=== PATIENT | male | born 1975 | race Caucasian/White ===

== ENCOUNTER 2016-11-26 10:06 | Inpatient (IN) | payer OTHER ==
[2016-11-26] MEDS ORDERED: DIPHTH/TETANUS/ACEL PERTUSSIS (BOOSTER) 0.5 ML VIAL/PFS IM ONE ×2 (10:10→11:18)
[2016-11-26] MEDS ORDERED: ceFAZolin 2 GM PREMIX 50 ML ONE (10:10)
[2016-11-26] MEDS ORDERED: ONDANSETRON HCL 4 MG/2 ML VIAL ONE (10:16)
[2016-11-26 10:19] VITALS: O2SAT 99
[2016-11-26 10:22] LABS: MEAN CORPUSCULAR HGB CONC 36.1 % (32.0-36.0)
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
[2016-11-26 10:32] LABS: AUTOMATED NEUTROPHIL # 4.8 TH/MM3 (1.8-7.7); BASOPHIL % 0.5 % (0.0-2.0); EOSINOPHIL # 0.1 TH/MM3 (0-0.4); EOSINOPHIL % 1.1 % (0.0-4.0); HEMATOCRIT 43.1 % (39.0-51.0); I-STAT POTASSIUM 3.6 MMOL/L (3.5-4.9); LYMPH % 34.2 % (9.0-44.0); LYMPHOCYTE # 2.9 TH/MM3 (1.0-4.8); MEAN CELL VOLUME 86.3 FL (80.0-100.0); MEAN CORPUSCULAR HEMOGLOBIN 31.2 PG (27.0-34.0); NEUT % 57.2 % (16.0-70.0); PLATELET COUNT 177 TH/MM3 (150-450); RED CELL DISTRIBUTION WIDTH 13.9 % (11.6-17.2); WHITE BLOOD COUNT 8.3 TH/MM3 (4.0-11.0)
[2016-11-26] MEDS ORDERED: IOHEXOL 350 MG/ML 10 ML VIAL (for RAD DIAG) IV ONE (10:32)
[2016-11-26] MEDS: LACTATED RINGER'S 1000 ML INJ 1,000 ML IV SCH ×2 (10:37→20:37)
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
[2016-11-26 10:40] LABS: HEMO FLAGS AUTO DIFF
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
[2016-11-26 10:43] LABS: APTT (PATIENT) 25.7 SEC (24.3-30.1); INTERNATIONAL NORMALIZED RATIO 1.1 RATIO; PROTHROMBIN TIME - PATIENT 12.1 SEC (9.8-11.6)
[2016-11-26] MEDS ORDERED: HYDROmorphone HCL PF 1 MG/ML VIAL IVP PRN (10:45)
[2016-11-26] MEDS ORDERED: CHLORHEXIDINE GLUCONATE 2 % 1 PACK (2 CLOTHS) TOP PRN (10:45)
[2016-11-26] MEDS ORDERED: ONDANSETRON HCL 4 MG/2 ML VIAL IV PRN (10:45)
[2016-11-26] MEDS ORDERED: MISCELLANEOUS NURSING INFORMATION XX SCH (10:45)
[2016-11-26] MEDS ORDERED: SODIUM CHLORIDE 0.9% FLUSH 10 ML FLUSH IV FLUSH PRN (10:45)
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
[2016-11-26 10:55] VITALS: BP 172/90; PULSE 80; RESP 16; O2SAT 98
[2016-11-26 10:56] VITALS: BP 168/105; PULSE 81; RESP 18; O2SAT 100
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
[2016-11-26] MEDS ORDERED: ceFAZolin 2 GM PREMIX 50 ML IV STA (11:18)
[2016-11-26 11:22] LABS: PLATELET ESTIMATE SMEAR NORMAL (NORMAL); PLATELET MORPHOLOGY NORMAL (NORMAL); SCAN/DIFF AUTO DIFF CONFIRMED
[2016-11-26] MEDS ORDERED: PROPOFOL 200 MG/20 ML AMP IV ONE (12:00)
[2016-11-26] MEDS ORDERED: ONDANSETRON HCL 4 MG/2 ML VIAL IV PUSH ONE (12:00)
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
[2016-11-26] MEDS ORDERED: BACITRACIN TOP OINT 15 GM TUBE ONE (13:20)
[2016-11-26] MEDS ORDERED: SILVER NITR/POTASSIUM NITRATE APPLICATORS ONE (13:21)
[2016-11-26] MEDS ORDERED: METOCLOPRAMIDE HCL 10 MG/2 ML VIAL ONE (13:28)
[2016-11-26] MEDS ORDERED: FAMOTIDINE 20 MG/2 ML VIAL ONE (13:28)
[2016-11-26] MEDS ORDERED: DEXAMETHASONE SOD PHOS 4 MG/ML VIAL ONE (13:28)
[2016-11-26] MEDS ORDERED: MIDAZOLAM HCL 2 MG/2 ML VIAL ONE (13:28)
[2016-11-26] MEDS ORDERED: BUPIVACAINE/EPINEPHRINE 0.25% PF 30 ML VIAL ONE (13:31)
[2016-11-26] MEDS ORDERED: ceFAZolin INJ 1,000 MG VIAL IV ONE (14:14)
[2016-11-26] MEDS ORDERED: fentaNYL CITRATE 250 MCG/5 ML AMP ONE (15:07)
--- NOTE | 2016-11-26 15:12 | HHI.PR ---
Immediate Post Op Note Procedure Date: Nov 26, 2016 Pre Op Diagnosis: (1) Laceration of scalp with complication Post Op Diagnosis: (1) Laceration of scalp with complication Surgeon: Zoe Guerrero Field Placement Director(s): None Procedure: Excisional debridement and repair of 13 cm scalp laceration. Estimated blood loss: 25 ml Anesthesia: General Drains: None Tourniquet time (min at mmHg) NA Patient to: PACU Patient Condition: Good Date/Time of Procedure: SEE SURGICAL CARE RECORD Zoe Guerrero MD Nov 26, 2016 15:11
[2016-11-26] MEDS ORDERED: DO NOT ADM ANY ANTICOAGULANT DRUGS PRN ×2 (15:15→16:00)
[2016-11-26] MEDS ORDERED: SODIUM CHLORIDE 0.9% FLUSH 5 ML FLUSH IVF PRN (15:15)
[2016-11-26 16:00] VITALS: BP 140/78; PULSE 81; RESP 18; TEMP 97.4; O2SAT 96
[2016-11-26] MEDS: DEXT 5%-NACL 0.45% 1000 ML INJ 1,000 ML IV SCH (16:40)
[2016-11-26 17:44] VITALS: O2SAT 98
[2016-11-26 20:00] VITALS: BP 144/64; PULSE 75; RESP 16; TEMP 98.1; O2SAT 95
[2016-11-26] MEDS: SODIUM CHLORIDE 0.9% FLUSH 5 ML FLUSH IVF SCH (21:00)
[2016-11-27] MEDS: DEXT 5%-NACL 0.45% 1000 ML INJ 1,000 ML IV SCH ×2 (02:22→11:45)
[2016-11-27] MEDS ORDERED: CHLORHEXIDINE GLUCONATE 2 % 1 PACK (2 CLOTHS) TOP SCH (04:00)
[2016-11-27] MEDS: LACTATED RINGER'S 1000 ML INJ 1,000 ML IV SCH (06:37)
[2016-11-27 08:00] VITALS: BP 129/68; PULSE 72; RESP 16; TEMP 97.6; O2SAT 98
[2016-11-27] MEDS: SODIUM CHLORIDE 0.9% FLUSH 5 ML FLUSH IVF SCH ×2 (08:09→20:29)
[2016-11-27 12:00] VITALS: BP 136/65; PULSE 83; RESP 18; TEMP 97.8; O2SAT 100
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
[2016-11-27 16:00] VITALS: BP 135/66; PULSE 95; RESP 20; TEMP 99; O2SAT 99
[2016-11-27] MEDS ORDERED: oxyCODONE/ACETAMINOPHEN 5 MG/325 MG TAB PO PRN (16:15)
[2016-11-27] MEDS: oxyCODONE/ACETAMINOPHEN 5 MG/325 MG TAB PO PRN ×2 (16:37→23:57)
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
[2016-11-27 20:00] VITALS: BP 131/69; PULSE 70; RESP 21; TEMP 97.4; O2SAT 99
[2016-11-27] MEDS: DOCUSATE SODIUM 100 MG CAP PO SCH (20:28)
--- NOTE | 2016-11-27 20:53 | RADRPT ---
EXAM DATE/TIME: 11/27/2016 18:27 [facility] COMPARISON: No previous studies available for comparison. INDICATIONS : Neck pain/head trauma. MEDICAL HISTORY : None. SURGICAL HISTORY : Orthopaedic. ENCOUNTER: Initial ACUITY: 1 day PAIN SCORE: 4/10 LOCATION: Paraspinal TECHNIQUE: Multiplanar, multisequence MRI examination of the cervical spine was performed. FINDINGS: VERTEBRAE: Normal vertebral body height. Homogeneous marrow signal. ALIGNMENT: No evidence of subluxation. CORD: Normal configuration and signal. POST FOSSA: The cerebellar tonsils are normal in position. C2-C3: The thecal sac has a normal configuration. There is no evidence of disc herniation or spinal canal s tenosis. The neural foramina are patent bilaterally. C3-C4: The thecal sac has a normal configuration. There is no evidence of disc herniation or spinal canal s tenosis. The neural foramina are patent bilaterally. C4-C5: The thecal sac has a normal configuration. There is no evidence of disc herniation or spinal canal s tenosis. The neural foramina are patent bilaterally. C5-C6: The thecal sac has a normal configuration. There is no evidence of disc herniation or spinal canal s tenosis. The neural foramina are patent bilaterally. C6-C7: The thecal sac has a normal configuration. There is no evidence of disc herniation or spinal canal s tenosis. The neural foramina are patent bilaterally. C7-T1: The thecal sac has a normal configuration. There is no evidence of disc herniation or spinal canal s tenosis. The neural foramina are patent bilaterally. CONCLUSION: Normal examination. Ghassan Lawrence MD on November 27, 2016 at 20:50 Board Certified Radiologist. This report was verified electronically.
[2016-11-27] MEDS ORDERED: MAGNESIUM HYDROXIDE SUSP 30 ML CUP PO SCH (21:00)
[2016-11-28] VITALS: BP 135/74; PULSE 85; RESP 20; TEMP 99.1; O2SAT 97
[2016-11-28] MEDS: oxyCODONE/ACETAMINOPHEN 5 MG/325 MG TAB PO PRN (07:56)
[2016-11-28] MEDS: DOCUSATE SODIUM 100 MG CAP PO SCH (07:56)
[2016-11-28] MEDS: SODIUM CHLORIDE 0.9% FLUSH 5 ML FLUSH IVF SCH (07:57)
[2016-11-28 08:00] VITALS: BP 132/73; PULSE 82; RESP 18; TEMP 98.7; O2SAT 98
[2016-11-28] MEDS ORDERED: DOCU1CAP39 PO (08:00)
[2016-11-28] MEDS ORDERED: MILKSUS PO (08:00)
[2016-11-28 12:00] VITALS: BP 147/70; PULSE 72; RESP 16; TEMP 96.4; O2SAT 100
[2016-11-28 16:00] VITALS: BP 129/74; PULSE 78; RESP 18; TEMP 97.2; O2SAT 100
[2016-11-28] MEDS ORDERED: OXYC1TAB63 PO (16:33)
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
[2016-12-09] MEDS ORDERED: BACT800T5 PO (10:24)
== END 2016-11-28 19:35 | disposition home or self-care (01) | DRG 572 ==
LOC: NEPI 10:06 → EDBD 11:01 → NEDA 11:01 → N07A 16:14
PROVIDERS: ADMIT Surgery Trauma Surgery; ATTEND Surgery Trauma Surgery
PROC: 0JQ00ZZ Repair Scalp Subcutaneous Tissue and Fascia, Open Approach (ICD-10-PCS; 2016-11-26)
PROC: 0JB00ZZ Excision of Scalp Subcutaneous Tissue and Fascia, Open Approach (ICD-10-PCS; principal; 2016-11-26 13:45)
DX: S01.01XA Laceration without foreign body of scalp, initial encounter (principal); M10.9 Gout, unspecified; V48.0XXA Car driver injured in noncollision transport accident in nontraffic accident, initial encounter; Y92.410 Unspecified street and highway as the place of occurrence of the external cause; Z87.891 Personal history of nicotine dependence
CPT/HCPCS: 70450; 71010; 71260; 72125; 72141; 72170; 74177; 82435; 82565; 82947; 84132; 84295; 84520; 85025; 85610; 85730; 86850; 86900; 86901; 90471; 90715; 96374; A0431-QM-SH; A0436-QM-SH; J0690; J1100; J2250; J2405; J2765; J3010; L0150; L0172; Q9967